=== PATIENT | male | born 2000 | race Caucasian/White ===

== ENCOUNTER 2022-03-06 18:16 | Emergency (ER) | payer OTHER, SELFPAY ==
[2022-03-06 18:46] VITALS: BP 147/74; PULSE 60; RESP 18; TEMP 36.6; O2SAT 99
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
[2022-03-06] MEDS: naproxen 500 mg Tablet PO (20:12)
== END 2022-03-06 20:17 | disposition home or self-care (01) ==
PROVIDERS: Emergency Provider Emergency Medicine
DX: S13.4XXA Sprain of ligaments of cervical spine, initial encounter (principal); V89.2XXA Person injured in unspecified motor-vehicle accident, traffic, initial encounter
CPT/HCPCS: 72040; 99283

== ENCOUNTER → 2022-05-28 09:59 | Outpatient (BNVA) | payer SELFPAY | PROVIDERS: Visit Provider Physician Assistant | DX: M54.50 Low back pain, unspecified (principal); M43.9 Deforming dorsopathy, unspecified | CPT/HCPCS: 72070; 72110 ==

== ENCOUNTER 2023-01-28 09:05 | Emergency (ER) | payer MEDICAID, SELFPAY ==
[2023-01-28 09:24] VITALS: BP 113/66; PULSE 116; RESP 18; TEMP 36.6; O2SAT 98
--- NOTE | 2023-01-28 09:46 | XRR_ITS ---
PROCEDURE INFORMATION: Exam: XR Chest Exam date and time: 01/28/2023 9:54 AM Age: 22 years old Clinical indication: Other: N/v weakness; Additional info: Pain TECHNIQUE: Imaging protocol: Radiologic exam of the chest. Views: 1 view. COMPARISON: CR XR thoracic spine 2V [id number] 05/28/2022 10:24 AM FINDINGS: Lungs: Unremarkable. No consolidation. Pleural spaces: Unremarkable. No pleural effusion. No pneumothorax. Heart/Mediastinum: Unremarkable. No cardiomegaly. Bones/joints: Unremarkable. XR/XR chest 1V portable [id number] IMPRESSION: No acute findings.
--- NOTE | 2023-01-28 09:47 | ED_ITS ---
HPI - Nausea/Vomiting/Diarrhea General: Chief complaint: Abdominal Pain Stated complaint: NV/weak Time Seen by Provider: 01/28/23 09:14 Source: patient Mode of arrival: ambulatory Limitations: no limitations History of Present Illness: Patient is a 22-year-old male who presents to ED today with complaints of nausea that has been present in the mornings over the past several months. He states he will wake up incredibly nauseous and dry heave most of the morning. He states he will then usually smoke marijuana which seems to help with his symptoms. He states during dry heaving episodes he will have abdominal pain/cramping. He states this morning he had some chest discomfort. Upon arrival to the ED he feels like symptoms have improved. He denies fevers. Reports normal bowel movements. Patient states he has been smoking marijuana daily for several years. Symptoms do not seem to be affected by eating throughout the day. He states once he smokes marijuana in the morning his symptoms go away for the remainder of the day. MD elicited complaint: nausea, vomiting, abdominal pain and other (dry heaving, chest pain) Pertinent past history: other (marijuana use) Onset (ago): month(s) Associated nausea: Yes Associated abdominal pain: Yes Location of pain: Diffuse Pain consistency: now resolved Severity: mild Quality: cramping Relieving factors: other (marijuana) Context: marijuana use Associated symtoms: Reports chest pain (improved upon arrival) and nausea; Denies change in vision, dysuria, fatigue, headache(s), malaise, palpitations or syncope Review of Systems Const: Denies: fever(s), chills, body aches, fatigue or malaise Eyes: Denies: change in vision or blurry vision Card: Reports: chest pain (improved upon arrival); Denies: palpitations, irregular heart rhythm, lightheadedness, syncope or dyspnea on exertion Resp: Denies: dyspnea, productive cough or pain on inspiration GI: Reports: abdominal pain (subsided upon arrival), nausea and vomiting (dry heaving); Denies: heartburn or diarrhea : Denies: flank pain, difficulty urinating or dysuria Musc: Denies: neck pain, back pain or joint pain Skin/Breast: Denies: rash Neuro: Denies: headache(s), numbness in extremities, weakness in extremities or sensory changes PFSH ED PFSH: Social History Smoking and tobacco status: current every day smoker Second hand smoke exposure: No Smoking risk assessment/counseling performed?: No Alcohol intake: never Desire information about alcohol rehabilitation?: No Counseling given: No Substance/Drug Use: never Desire information about substance/drug rehabilitation?: No Counseling given: No Adopted: No Caregiver/support person: Yes Lives independently: No Household members: friend(s) Housing: House Highest education level completed: High School Graduate service: No Current occupational status: employed Current occupation: Maintenance at [employer] Current occupational exposures/hazards: No Pets and animals: Yes Sexually active: Yes Do you think of yourself as: Straight/Heterosexual Current gender identity: Male Special joni needs: No Agree to transfusion: Yes Physical Exam Const: COMMON NORMALS: no acute distress, average body habitus, patient oriented x3, no limitations, healthy appearing, alert and well nourished ORIENTATION/CONSCIOUSNESS: Yes awake, Yes oriented to person, Yes oriented to place and Yes oriented to time Chest: COMMONS NORMALS: normal inspection of the chest and normal palpation of entire chest wall Resp: COMMON NORMALS: normal respiratory effort and clear to auscultation bilaterally AUSCULTATION: clear to auscultation bilaterally Cardio: COMMON NORMALS: regular rate and regular rhythm RATE: regular rate RHYTHM: regular rhythm GI: COMMON NORMALS: Normal to inspection, nondistended, normoactive bowel so unds present, Soft to palpation, non-tender, No hepatosplenomegaly present and no masses PALPATION: Yes Soft to palpation and Yes No hepatosplenomegaly present Extremity: COMMON NORMALS: normal to inspection GENERAL: Yes normal exam except as noted Neuro: RAFA COMA SCALE: document GCS findings Bee coma scale eye opening: Spontaneous Bee coma scale verbal response: Orientated Rafa coma scale motor response: Obey commands Rafa coma scale total score: 15 COMMON NORMALS: patient oriented x3 SENSORIUM/ORIENTATION: Yes alert, Yes oriented to person, Yes oriented to place and Yes oriented to time Skin: COMMON NORMALS: no rashes or lesions noted GENERAL SKIN EXAM: no rashes or lesions noted Course Vital Signs: Vital signs: Vital Signs Temperature 97.9 F 01/28/23 09:24 Pulse Rate 65 01/28/23 10:29 Respiratory Rate 16 01/28/23 10:29 Blood Pressure 135/78 01/28/23 10:29 Pulse Oximetry 98 01/28/23 10:29 Oxygen Delivery Me thod Room Air 01/28/23 09:24 MDM - Nausea/Vomiting/Diarrhea Medical Decision Making Patient appears in no acute distress. His vital signs are stable. Blood work is unremarkable. Certainly by history this seems to be a mild variation of hyperemesis cannabis syndrome. Recommend marijuana cessation. We will place referral with case management to get him set up with a primary care provider. Return to ED precautions given. Lab Data 01/28/23 09:46 01/28/23 09:46 Radiology Impressions Chest X-Ray 01/28/23 09:46 IMPRESSION: No acute findings. Laboratory Results WBC 7.9 10^3/uL (4.5-13.0) 01/28/23 09:46 RBC 5.06 10^6/uL (4.1-5.3) 01/28/23 09:46 Hgb 15.1 g/dL (11.7-16.6) 01/28/23 09:46 Hct 44.0 % (42.0-52.0) 01/28/23 09:46 MCV 87.0 fl (80-94) 01/28/23 09:46 MCH 29.8 pg (28.0-34.0) 01/28/23 09:46 MCHC 34.3 g/dL (30.0-36.0) 01/28/23 09:46 RDW 12.3 % (12.1-15.1) 01/28/23 09:46 Plt Count 227 10^3/cmm (130-400) 01/28/23 09:46 MPV 10.4 fL (7.4-10.4) 01/28/23 09:46 Neut % (Auto) 72.7 % 01/28/23 09:46 Lymph % (Auto) 14.4 % 01/28/23 09:46 [place] % (Auto) 9.6 % 01/28/23 09:46 Eos % (Auto) 2.3 % 01/28/23 09:46 Baso % (Auto) 0.9 % 01/28/23 09:46 Neut # (Auto) 5.77 10^3/uL (1.8-8.0) 01/28/23 09:46 Lymph # (Auto) 1.1 10^3/uL (1.5-6.5) L 01/28/23 09:46 [place] # (Auto) 0.8 10^3/uL (0.2-0.9) 01/28/23 09:46 Eos # (Auto) 0.2 10^3/uL (0.0-0.8) 01/28/23 09:46 Baso # (Auto) 0.1 10^3/uL (0.0-0.1) 01/28/23 09:46 Nucleated RBC % (auto) 0 % 01/28/23 09:46 Nucleated RBCs # 0.0 /100WBC 01/28/23 09:46 Sodium 140 mmol/L (136-145) 01/28/23 09:46 Potassium 4.2 mmol/L (3.5-5.1) 01/28/23 09:46 Chloride 103 mmol/L (98-107) 01/28/23 09:46 Carbon Dioxide 24 mmol/L (22-29) 01/28/23 09:46 Anion Gap 17.2 (5-19) 01/28/23 09:46 BUN 13 mg/dL (6-20) 01/28/23 09:46 Creatinine 0.9 mg/dL (0.7-1.2) 01/28/23 09:46 GFR Calculation 107.6 mL/min (90-130) 01/28/23 09:46 Glucose 110 mg/dL (65-115) 01/28/23 09:46 Calculated Osmolality 291 mOsm/kg (285-295) 01/28/23 09:46 Calcium 10.3 mg/dL (8.5-10.5) 01/28/23 09:46 Total Bilirubin 0.9 mg/dL (0.15-1.2) 01/28/23 09:46 AST 17 U/L (0-40) 01/28/23 09:46 ALT 15 U/L (0-41) 01/28/23 09:46 Alkaline Phosphatase 85 U/L (40-130) 01/28/23 09:46 Total Protein 7.6 g/dL (6.6-8.7) 01/28/23 09:46 Albumin 5.0 g/dL (3.5-5.2) 01/28/23 09:46 Globulin 2.6 g/dL (1.3-4.6) 01/28/23 09:46 Lipase 21 U/L (13-60) 01/28/23 09:46 Discharge Plan Discharge Patient Disposition: Home Clinical Impression: Nausea Condition: Stable Prescriptions: New ondansetron 4 mg tablet,disintegrating 4 mg PO Q8H PRN (Reason: nausea and vomiting) Qty: 14 0RF No Action fluticasone propionate [Flonase Allergy Relief] 50 mcg/actuation spray,suspension 1 spray intranasal Q12H PRN (Reason: allergy symptoms) Qty: 16 0RF Rx Instructions: administer into each nostril cetirizine [Zyrtec] 10 mg tablet 10 mg PO DAILY Qty: 30 0RF Discharge Orders: Discharge ED (Routine); Ordered 01/28/23 Ordered By: Fanny Patel Patient Instructions: Cannabis Use Disorder (ED) Coding Level of Care Code ED Pattern Changer for Shaina Hodges
[2023-01-28 09:53] LABS: Basophils # 0.1 10^3/uL (0.0-0.1); Basophils % 0.9 %; Eosinophils # 0.2 10^3/uL (0.0-0.8); Eosinophils % 2.3 %; Hemoglobin 15.1 g/dL (11.7-16.6); Lymphocytes # 1.1 10^3/uL (1.5-6.5); Lymphocytes % 14.4 %; Mean Corpuscular HGB Conc 34.3 g/dL (30.0-36.0); Mean Corpuscular Hemoglobin 29.8 pg (28.0-34.0); Mean Platelet Volume 10.4 fL (7.4-10.4); Monocytes # 0.8 10^3/uL (0.2-0.9); Monocytes % 9.6 %; Neutrophils # 5.77 10^3/uL (1.8-8.0); Neutrophils % 72.7 %; Nucleated Red Blood Cells % 0 %; Platelet Count 227 10^3/cmm (130-400); Red Blood Count 5.06 10^6/uL (4.1-5.3); Red Cell Distribution Width 12.3 % (12.1-15.1); White Blood Count 7.9 10^3/uL (4.5-13.0)
[2023-01-28] MEDS: ondansetron 2 mg/ML SDV 2 mL 4 MG IVP (10:14)
[2023-01-28] MEDS: LORazepam 2 mg/mL INJ 1 mL 0.5 MG IVP (10:14)
[2023-01-28 10:17] LABS: Alanine Aminotransferase 15 U/L (0-41); Alkaline Phosphatase 85 U/L (40-130); Anion Gap 17.2 (5-19); Aspartate Amino Transferase 17 U/L (0-40); Blood Urea Nitrogen 13 mg/dL (6-20); Calcium 10.3 mg/dL (8.5-10.5); Carbon Dioxide 24 mmol/L (22-29); Chloride 103 mmol/L (98-107); Creatinine Clr Calc Pharmacy 151.0081; Globulin 2.6 g/dL (1.3-4.6); Glomerular Filtration Rate 107.6 mL/min (90-130); Glucose 110 mg/dL (65-115); Lipase 21 U/L (13-60); Osmolality Calculated 291 mOsm/kg (285-295); Potassium 4.2 mmol/L (3.5-5.1); Sodium 140 mmol/L (136-145); Total Bilirubin 0.9 mg/dL (0.15-1.2); Total Protein 7.6 g/dL (6.6-8.7)
[2023-01-28 10:29] VITALS: BP 135/78; PULSE 65; RESP 16; O2SAT 98
--- NOTE | 2023-02-03 15:28 | DCPLANNER ---
Gulshan lee had message to speak with patient about getting established with a primary care physician - no answer at this time.
== END 2023-01-28 10:52 | disposition home or self-care (01) ==
PROVIDERS: Emergency Provider Physician Assistant
DX: R11.0 Nausea (principal); F17.210 Nicotine dependence, cigarettes, uncomplicated
CPT/HCPCS: 71045; 80053; 83690; 85025; 96374; 96375; 99284; J2060; J2405